=== PATIENT | female | born 1970 | race Caucasian/White ===

== ENCOUNTER 2023-01-11 15:13 | Emergency (ER) | payer OTHER, SELFPAY ==
--- NOTE | 2023-01-11 15:15 | RT.EKG_ITS ---
APPROVED REPORT Exam: Resting ECG Reason for Exam: chest pain, h/o PE Patient Location: E HR:84 bpm ECG Measurements Heart Rate 84 AXIS VA 175 P 72 QRSd 84 QRS 62 QT 354 T 48 QTc 420 Conclusion Sinus rhythm...normal P axis, V-rate 60- 99
[2023-01-11 15:27] VITALS: BP 125/74; PULSE 83; RESP 13; TEMP 37.2; O2SAT 96
--- NOTE | 2023-01-11 15:45 | DI.RAD_ITS ---
Exam(s) XR CHEST 2V PA LATERAL EXAM: XR CHEST 2V PA LATERAL CLINICAL HISTORY: cough TECHNIQUE: 2D digital imaging was performed of the chest. Two images were obtained. PA and lateral views were obtained. COMPARISON: No exams were available for comparison FINDINGS: MEDIASTINUM: Normal. HEART: Normal. PULMONARY VASCULATURE: Normal. LUNGS: The lungs are clear. There is hyperinflation of the chest which may represent underlying COPD . No focal consolidating infiltrates are seen. PLEURAL SPACE: No pleural effusion or pneumothorax. BONE:Within normal limits for the patient's age. OTHER FINDINGS:Normal. IMPRESSION: No acute pulmonary findings. No focal consolidating infiltrates. DATA REPOSITORY: RADIATION DOSE DELIVERED:
--- NOTE | 2023-01-11 15:48 | ED.GENADUL_ITS ---
Discharge Plan Disposition Patient Disposition: Home Discharge Details Clinical Impression: Hemoptysis, Upper respiratory infection ED Provider: Jackie Foster Home Meds and New Rx's Prescriptions: New benzonatate 100 mg capsule 100 mg PO TID PRN (Reason: cough) Qty: 10 0RF Continued Xarelto 15 mg tablet 15 mg PO DAILY Rx Instructions: must administer with evening meal Discharge Instructions Instructions: Upper Respiratory Infection (ED), Hemoptysis (ED) Additional Instructions: Your labs and imaging are reassuring here today. As we discussed, I am concerned that this associate with your forceful coughing from your recent cold. Please encourage hydration. Please continue with your medications as previously prescribed. Please try humidifier next to your bed. I have prescribed you a cough suppressant you may use this as prescribed. You may also try cough drops to help with symptoms. I have referred you to local primary care. You should hear from care management regarding follow-up appointment. Below is the number for [employer] [facility] for your chronic gynecologic care, you may call to schedule follow-up appointment. 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 She reports that she had a cold for the past week. Initially it was laying low, felt like she was hit hard by this illness. However, over the recent days she feels that she has been improving. Feels that her cough is breaking up. Has been bringing up more phlegm. However, this morning began noting first a small clot and then some blood-tinged sputum. This has been resolved for over an hour at this point. Patient is anticoagulated on rivaroxaban, endorses 1 missed dose this week associated with illness and being fatigued. She states that her primary care and paper tube grader are located in [place]. She states that her paper tube grader has been advising her that she has been stable for so many years is unlikely she will have a recurrent issue. She denies any recent travel. No leg pain or swelling. States that she did initially have a sore throat but this has not subsided. On exam, patient appears nontoxic. Her lung sounds are clear. She is hemodynamically stable. Normal cardiac exam. No lower extremity edema or calf pain. Normal HEENT exam with no blood in the posterior oropharynx. No recent epistaxis. ECG was obtained and reviewed by Dr. Leone. No acute abnormalities appreciated. Patient does endorse some central chest discomfort particular with cough. Primary concern at this time for hemoptysis associated with her forceful cough that she has had for the past week. Again, this does not sound to be in any significant quantity or persisting for any long periods of time. However, given her past medical history I did also consider potential PE and we will screen with a D-dimer. We will also obtain a chest x-ray. She does not endorsing any shortness of breath but has been having some chest discomfort. This does not sound to be exertionally based, more likely associated with recent viral illness. However, also considered less likely to be ACS and will screen with a troponin. She denies any bleeding elsewhere, no rash. FINDINGS: Lungs: Hyperinflation consistent with underlying COPD/emphysema, reactive airway disease, or upper respiratory infection with air trapping. No peripheral infiltrates. No edema. Pleural spaces: No pleural effusion. Heart/Mediastinum: Normal heart size. Bones/joints: Unremarkable skeletal structures. IMPRESSION: Nonspecific hyperinflation suggesting air trapping. Consider COPD/emphysema, reactive airway disease, or upper respiratory infection. This URI ddx is consistent with history. She does not have hx of COPD, does not have evidence of reactive airway at this time. Labs reviewed. No leukocytosis, no elevation of d-dimer or tropoinin. No other signifcant lab abnormalities. Discussed with patient. We will arrange for local PCP, She would like to continu with her current paper tube grader. Encourage supportive care. Encouraged that she continue with her rivaroxaban. Advised close f/u and strict return precautions. All of her questions and concern were addressed, she is in agreene twiht this plan. HPI General Date/Time Provider Initiated Documentation: 01/11/23 15:29 . Limitations to Documentation: no limitations . Information obtained by: patient and RN notes reviewed . History of Present Illness 52 year old F presents to the emergency department with the chief complaint of Hemoptysis, chest discomfort, cold, described as moderate, with intensity rated at 5. Quality is described as aching, and is localized to the chest. Patient reports no radiation. Patient started experiencing this hour(s) (Noted the hemoptysis this morning. Cold began a week ago but has been improving) and it has been constant. No relieving factors improve symptom(s), Other factors that worsen symptoms (Coughing) . Patient notes chest pain, cough, loss of appetite and malaise; denies fever/chills, headaches, nausea/vomiting, rash and shortness of breath. Patient did receive the following treatments prior to arrival, none Related Data Home Medications Medication Instructions Recorded Confirmed benzonatate 100 mg capsule 100 mg PO TID PRN cough #10 caps 01/11/23 rivaroxaban 15 mg tablet (Xarelto) 15 mg PO DAILY 01/11/23 01/11/23 Previous Rx's Medication Instructions Recorded benzonatate 100 mg capsule 100 mg PO TID PRN cough #10 caps 01/11/23 Allergies Allergy/AdvReac Type Severity Reaction Status Date / Time No Known Allergies Allergy Verified 01/11/23 10:29 General Stated Complaint: RespSymp ALFREDA: 3 Review of Systems Constitutional Constitutional: Reports as per HPI, Denies chills, Denies fever(s) and Denies headache(s) ENT Ears, Nose, Mouth, and Throat: Denies headache(s) Cardiovascular Cardiovascular: Reports as per HPI and Denies dyspnea Respiratory Respiratory: Reports as per HPI, Denies pain on inspiration, Denies pain with cough and Denies dyspnea Gastrointestinal Gastrointestinal: Reports as per HPI, Denies abdominal pain, Denies diarrhea, Denies nausea and Denies vomiting Musculoskeletal Musculoskeletal: Reports as per HPI and Denies back pain Integumentary/Breasts Skin/Breast: Reports as per HPI and Denies rash Neurologic Neurologic: Reports as per HPI and Denies headache(s) Hematologic/Lymphatic Hematologic/Lymphatic: Reports as per HPI, Denies easy bleeding and Denies easy bruising PFSH All Active Problems (Updated 01/11/23 @ 17:33 by SONA Fitzpatrick) Hemoptysis (Acute) Upper respiratory infection (Acute) Social History Smoking/Tobacco Use Status: Never Smoking risk assessment performed?: Yes Do you feel safe at home: Yes Exam Const General: cooperative, healthy appearing, comfortable, no acute distress and well developed Nutritional Appearance: average body habitus and well nourished Orientation: alert, awake and oriented x3 [facility]: normal to inspection Ears: hearing grossly normal bilaterally, external ears normal, TM's normal bilaterally and mastoids normal Face and sinus: normal facial exam, sinuses nontender and face symmetric Mouth: oral mucosae normal, oropharynx normal and moist mucous membranes Throat: posterior oropharynx normal, tonsils normal and uvula midline Neck Neck: normal visual inspection and no lymphadenopathy Chest Chest: normal inspection of the chest, normal palpation of entire chest wall and no crepitus Resp Effort & Inspection: normal respiratory effort, able to speak in complete sentences and no respiratory distress Auscultation: clear to auscultation bilaterally, no rales, no rhonchi and no wheezes Cardio Rate: regular rate Rhythm: regular rhythm Heart Sounds: S1 normal and S2 normal Skin General skin exam: no rashes or lesions noted Trauma: no lacerations or abrasions Neuro General: patient alert, patient awake and patient oriented x3 Cognition: normal cognition Speech: speech normal Gait: normal gait Extrem General: normal to inspection, capillary refill normal, no pedal edema, no calf tenderness and normal gait Psych Appearance: grossly normal and well kempt Mental Status: mental status grossly normal Speech and Movement: speech and movement normal Course Vital Signs Vital signs: Vital Signs Temperature 37.2 C 01/11/23 15:27 Pulse 83 01/11/23 15:27 Respiratory Rate 13 01/11/23 15:27 Blood Pressure 125/74 01/11/23 15:27 Pulse Oximetry 96 01/11/23 15:27 Temperature 37.2 C 01/11/23 15:27 Temperature Source Oral 01/11/23 15:27 Pulse 83 01/11/23 15:27 Respiratory Rate 13 01/11/23 15:27 Respiratory Effort Normal 01/11/23 15:35 Blood Pressure 125/74 01/11/23 15:27 Blood Pressure Position Sitting 01/11/23 15:27 Pulse Oximetry 96 01/11/23 15:27 Oxygen Delivery Method Room Air 01/11/23 15:27 Oxygen Flow Rate 0 01/11/23 15:27 Pain Level 5 03/18/23 15:27 PAWSS Have you Been Recently Intoxicated or Drunk Within the Last 30 days?: No Have you Ever Experienced Previous Episodes of Alcohol Withdrawal?: No Have you ever Experienced Withdrawal Seizures?: No Have you ever Experienced Delirium Tremens(DT)s?: No Have you ever undergone Alcohol Rehabilitation Treatment (i.e, inpt ot outpatient treatment programs)?: No Have you ever Experienced Blackouts?: No Have you ever Combined Alcohol with other Downers within the last 90 days?: No Have you ever Combined Alcohol with any other Substance of Abuse during the last 90 days?: No Positive Blood Alcohol level on Presentation? [PCS.BAL]: No Evidence of Increased Autonomic Activity (i.e. HR>120, tremor, sweating, agitation, nausea)?: No Result: 0
[2023-01-11] MEDS: Normal Saline 1,000 ML 1000 ML IV (16:11)
[2023-01-11 16:27] LABS: Abs Immature Grans 0.01 10^3/uL (0.0-0.06); Absolute Basophil Count 0.05 10^3/uL (0.0-0.2); Absolute Eosinophil Count 0.24 10^3/uL (0.0-0.7); Absolute Lymphocyte Count 2.46 10^3/uL (1.2-3.4); Absolute Monocyte Count 0.67 10^3/uL (0.1-0.8); Absolute Neutrophil Count 3.72 10^3/uL (1.2-6.7); Basophils % 0.7; Eosinophils % 3.4; HCT 40.3 % (36.0-46.0); HGB 13.1 g/dL (11.2-15.7); Immature Grans % 0.1; Lymphocytes % 34.4; MCH 29.7 pg (27.0-33.0); MCHC 32.5 % (32.0-36.0); MCV 91 fL (80-95); MPV 11.8 fL (8.0-11.0); Monocytes % 9.4; Platelet Count 223 10^3/uL (130-400); RBC 4.41 10^6/uL (3.93-5.22); RDW 11.9 % (11.7-14.6); RDW-SD 40.4 fL; WBC 7.15 10^3/uL (4.4-10.8)
[2023-01-11 16:34] VITALS: BP 121/72; PULSE 79; PULSE 80; RESP 17; O2SAT 96
[2023-01-11 16:41] LABS: INR 0.9 (0.9-1.1); PTT Activated 26.7 sec (21.5-31.9); Prothrombin Time 9.6 sec (9.3-11.0)
[2023-01-11 16:47] LABS: ALT 19 U/L (14-59); AST 12 U/L (15-37); Albumin 4.1 g/dL (3.4-5.0); Alkaline Phosphatase 122 U/L (46-116); Anion Gap 7.8 mmol/L (3-11); BUN 15 mg/dL (7-18); Bilirubin, Total 0.3 mg/dL (0.2-1.0); CO2 28.2 mmol/L (21.0-32.0); Calcium 8.8 mg/dL (8.5-10.1); Chloride 106 mmol/L (98-107); Estimated GFR 67.78 (mL/min/1.73m2); Glucose 133 mg/dL (74-106); Magnesium 2.2 mg/dL (1.8-2.4); Potassium 3.8 mmol/L (3.5-5.1); Sodium 142 mmol/L (136-145); Total Protein 7.3 g/dL (6.4-8.2); Troponin I < 50 ng/L (<or=60)
[2023-01-11 17:00] VITALS: BP 122/70; PULSE 74; O2SAT 96
[2023-01-11 17:06] LABS: D-Dimer 216 ng/mlFEU (<500)
[2023-01-11 17:15] VITALS: BP 113/82; PULSE 71; O2SAT 96
--- NOTE | 2023-01-11 17:18 | DI.VRAD_ITS ---
PROCEDURE INFORMATION: Exam: XR Chest Exam date and time: 01/11/2023 4:41 PM Age: 52 years old Clinical indication: Cough TECHNIQUE: Imaging protocol: Radiologic exam of the chest. Views: 2 views. COMPARISON: No relevant prior studies available. FINDINGS: Lungs: Hyperinflation consistent with underlying COPD/emphysema, reactive airway disease, or upper respiratory infection with air trapping. No peripheral infiltrates. No edema. Pleural spaces: No pleural effusion. Heart/Mediastinum: Normal heart size. Bones/joints: Unremarkable skeletal structures. IMPRESSION: Nonspecific hyperinflation suggesting air trapping. Consider COPD/emphysema, reactive airway disease, or upper respiratory infection. Dictated and Authenticated by: Viktor Mena MD. Ordering:JOSE Mejia MD
[2023-01-11 17:30] VITALS: BP 136/79; PULSE 77; O2SAT 99
--- NOTE | 2023-01-11 17:35 | NUR.NOTE ---
Nursing Note: Referral given to Care Management for needs PCP/hemoptysis, establish care/ in 2 weeks.
== END 2023-01-11 17:46 | disposition home or self-care (01) ==
PROVIDERS: Emergency Provider Physician Assistant
DX: J06.9 Acute upper respiratory infection, unspecified (principal); R53.83 Other fatigue; R07.89 Other chest pain; I25.2 Old myocardial infarction; Z86.718 Personal history of other venous thrombosis and embolism; Z86.711 Personal history of pulmonary embolism; Z79.01 Long term (current) use of anticoagulants
CPT/HCPCS: 80053; 81025; 93005; 96360; 99284; 71046; 83735; 84484; 85025; 85379; 85610; 85730; 93010; 99285

== ENCOUNTER 2023-06-24 16:40 | Emergency (ER) | payer OTHER, SELFPAY ==
[2023-06-24 16:53] VITALS: BP 125/98; PULSE 66; RESP 99; TEMP 36.7; O2SAT 99
--- NOTE | 2023-06-24 17:00 | DI.CT_ITS ---
Exam(s) CT LUMBAR SPINE WO EXAM: CT LUMBAR SPINE WO CLINICAL HISTORY: pain s/p fall on rock. TECHNIQUE: Imaging Protocol: Axial computed tomography images with coronal and sagittal reformatted images were created and reviewed COMPARISON: No exams were available for comparison FINDINGS: Bones: The last intervertebral disc space is designated the L5/S1 level for the numbering purpose of this examination. The vertebral body heights are well maintained. Alignment is satisfactory. No fracture is seen. The intervertebral discs are normal in height. No gross evidence of a disc herniation. The visualized SI joints and sacrum are will maintained. Soft Tissues: The paraspinal soft tissues are unremarkable. No abnormalities are seen visualized por tions of the abdomen or pelvis.. IMPRESSION: Normal CT examination of the lumbar spine. RADIATION DOSE DELIVERED: 553.15 mGy.cm Total DLP DATA REPOSITORY: All CT scans at this facility are submitted to the National Radiology Data Registry (NRDR) Dose Index Registry (DIR) with the [employer] (A[employer]). RADIATION OPTIMIZATION: All CT scans at this facility use at least one of these dose optimization te chniques: automated exposure control; mA and/or kV adjustment per patient size (includes targeted exa ms where dose is matched to clinical indication); or iterative reconstruction.
--- NOTE | 2023-06-24 17:12 | ED.GENADUL_ITS ---
Discharge Plan Disposition Patient Disposition: Home Condition: Stable Discharge Details Clinical Impression: Lumbar contusion Primary Care Provider: None,None ED Provider: Waqar Leone Home Meds and New Rx's Prescriptions: Continued Xarelto 15 mg tablet 15 mg PO DAILY Rx Instructions: must administer with evening meal benzonatate 100 mg capsule 100 mg PO TID PRN (Reason: cough) Qty: 10 0RF Discharge Instructions Instructions: Contusion in Adults (ED) Additional Instructions: if pain continues next week follow up with your primary care provider if you feel more ill, have severe worsening pain or new symptoms such as chest pain return to the emergency department Medical Decision Making 53 yo female with hx of prior PE on rivaroxaban who comes in with lower back and coccyx pain since Friday. She was hiking [place] and slipped and landed on a rock on her lower back. Denies hitting her head or loc, has had coccyx and mid lower back pain since so came here. Denies issues with urinary retention, paresthesia, weakness since. She is caox4 on arrival, no signs of trauma to the head, no c/t spine tenderness, no chest or abdomen tenderness. Has tenderness over l5 and the coccyx with no palpable deformity, no saddle anethesia. suspect contusion but will obtain ct l spine and coccyx/sacrum to further evaluate. imaging negative, pt stable, no new pain. Will have nursing place lidocaine patch and she states pain has kept her from sleeping will send home with 4 oxycodone. Stable for d/c, return precautions given Differential Diagnosis Differential Diagnosis: contusion, fracture Medical Records Medical records reviewed: Yes I reviewed the patient's medical records. Imaging Data Radiologic Study: Attestation: I personally reviewed and interpreted this imaging study as follows: Imaging: CT Scan Radiologist's impression: no acute findings HPI General Mode of arrival: ambulatory . Date/Time Provider Initiated Documentation: 06/24/23 16:50 . Limitations to Documentation: no limitations . Information obtained by: patient . History of Present Illness 53 year old F presents to the emergency department with the chief complaint of lumbar and coccyx pain, described as moderate, Quality is described as aching, Patient started experiencing this day(s) (2) and it has been constant. No relieving factors improve symptom(s), No exacerbating factors reported . Patient notes no other symptoms.. Patient did receive the following treatments prior to arrival, none Related Data Home Medications Medication Instructions Recorded Confirmed benzonatate 100 mg capsule 100 mg PO TID PRN cough #10 caps 01/11/23 06/24/23 rivaroxaban 15 mg tablet (Xarelto) 15 mg PO DAILY 01/11/23 06/24/23 Previous Rx's Medication Instructions Recorded benzonatate 100 mg capsule 100 mg PO TID PRN cough #10 caps 01/11/23 Allergies Allergy/AdvReac Type Severity Reaction Status Date / Time No Known Allergies Allergy Verified 06/24/23 16:56 General Stated Complaint: Nk/Back Pain ALFREDA: 4 Review of Systems All systems reviewed & are unremarkable except as noted in HPI and below Constitutional Constitutional: Denies chills, Denies fever(s) and Denies weakness Cardiovascular Cardiovascular: Denies chest pain and Denies dyspnea Respiratory Respiratory: Denies cough and Denies dyspnea Gastrointestinal Gastrointestinal: Denies abdominal pain, Denies nausea and Denies vomiting Musculoskeletal Musculoskeletal: Denies joint swelling Neurologic Neurologic: Denies weakness PFSH All Active Problems (Updated 06/24/23 @ 18:58 by Waqar Leone MD) Lumbar contusion (Acute) Social History Smoking/Tobacco Use Status: Never Smoking risk assessment performed?: Yes Do you feel safe at home: Yes Exam Const General: no acute distress Orientation: alert HENMT Head: normal to inspection Ears: external ears normal General nose exam: external nose normal Mouth: moist mucous membranes Eyes General: appearance normal, both eyes and all related structures Neck Neck: normal visual inspection Resp Effort & Inspection: normal respiratory effort and able to speak in complete sentences Cardio Rate: regular rate GI Palpation: soft and nontender Back/Spine/Pelvis Back: no CVA tenderness Skin General skin exam: no rashes or lesions noted Neuro General: patient alert and patient oriented x3 Extrem General: normal to inspection Psych Mental Status: mental status grossly normal Course Vital Signs Vital signs: Vital Signs Temperature 36.7 C 06/24/23 16:53 Pulse 66 06/24/23 16:53 Respiratory Rate 99 H 06/24/23 16:53 Blood Pressure 125/98 H 06/24/23 16:53 Pulse Oximetry 99 06/24/23 16:53 Temperature 36.7 C 06/24/23 16:53 Pulse 66 06/24/23 16:53 Respiratory Rate 99 H 06/24/23 16:53 Respiratory Effort Normal 06/24/23 17:00 Blood Pressure 125/98 H 06/24/23 16:53 Blood Pressure Position Sitting 06/24/23 16:53 Pulse Oximetry 99 06/24/23 16:53 Oxygen Delivery Method Room Air 06/24/23 16:53 Oxygen Flow Rate 0 06/24/23 16:53 Pain Level 3 06/24/23 16:53
[2023-06-24] MEDS: Lidocaine 5% Patch 1 PATCH TP (19:13)
== END 2023-06-24 19:21 | disposition home or self-care (01) ==
PROVIDERS: Emergency Provider Emergency Medicine
DX: S30.0XXA Contusion of lower back and pelvis, initial encounter (principal); W01.198A Fall on same level from slipping, tripping and stumbling with subsequent striking against other object, initial encounter
CPT/HCPCS: 99284; 72131

== ENCOUNTER 2023-10-03 11:13 | Outpatient (REF) | payer OTHER, SELFPAY ==
--- NOTE | 2023-10-03 09:00 | PAPFT_PTH ---
PATIENT: Elsa West LOC: [facility] U#:[id number] AGE/SX: 53/F ROOM: RE10/03/[address]: Mala العلي DO : 1970 BED: DIS: 10/03/2023 SPEC #: [id number] RECD: 10/03/23 12:59 STATUS: KORINARoseanna REQ #: [id number] HANDY: 10/03/23 09:[address]: Mala العلي DEPT: [facility] Cytology RECD BY: Sharon Diop ENTERED: 10/03/23 12:59 SP TYPE: PAPFT OTHR DR: Nesha Bishop Tissues: 1 - CX/ENDOCX FOR PAP SMEARS Procedures: PAP THIN PREP/UVM Screening HPV DNA PROBE Comments: [id number]
== END 2023-10-03 11:14 | disposition home or self-care (01) ==
LOC: LBN 11:13
PROVIDERS: PCP Family Medicine; Visit Provider Obstetrics & Gynecology
DX: Z12.4 Encounter for screening for malignant neoplasm of cervix (principal)
CPT/HCPCS: 88142; 87624

== ENCOUNTER 2023-10-03 14:36 | Outpatient (CLI) | payer OTHER, SELFPAY ==
[2023-10-03 10:56] LABS: Vitamin D 25 Total 32.3 ng/mL (30-100)
[2023-10-03 11:07] LABS: Vitamin B12 > 2000 pg/mL (193-986)
--- OUTSIDE RECORDS SUMMARY | 2023-10-03 14:38 | XMS_ITS | CCD ---
Author Name Unknown Address [address] [place] [id number] Organization Unknown Address [address] [place] [address] [id number] Care Team Providers Care Executive Chef Name Role Phone EFREN WOODARD Attending Physician [phone] Vital Signs Unknown or Not Available. Allergies Unknown or Not Available. Procedures Unknown or Not Available. History of Immunizations Unknown or Not Available. Problems Unknown or Not Available. Results Unknown or Not Available. Active Medications Unknown or Not Available. Medications Administered During Visit Unknown or Not Available. Encounters Encounter Diagnosis Diagnosis Code Start Date Hallux rigidus, right foot M2021 07/09 Social History Smoking Status Code Start Date End Date Never smoker [id number] Patient Decision Aids Unknown or Not Available. Discharge Instructions You were admitted to [facility] on 07/09/2021 13:02 with a principal diagnosis of Hallux rigidus, right foot You were discharged from [facility] on 07/09/2021 13:03 Should you have any questions prior to discharge, please contact a member of your healthcare team. If you have left the hospital and have any questions, please contact your primary care physician. Chief Complaint and Reason For Visit Unknown or Not Available. Function Status Unknown or Not Available. Plan of Care Unknown or Not Available. Referral/Transition of Care Unknown or Not Available.
== END 2023-10-03 14:37 | disposition home or self-care (01) ==
LOC: LBO 14:37
PROVIDERS: PCP Family Medicine; Visit Provider Family Medicine
DX: F32.A Depression, unspecified (principal); D51.0 Vitamin B12 deficiency anemia due to intrinsic factor deficiency
CPT/HCPCS: 36415; 82306; 82607

== ENCOUNTER → 2023-10-24 15:17 | Outpatient (CLI) | payer OTHER, SELFPAY ==
--- NOTE | 2023-10-24 15:34 | DI.RAD_ITS ---
Exam(s) XR HAND LT COMPLETE EXAM: XR HAND LT COMPLETEz CLINICAL HISTORY: Lt hand pain, M79.642. TECHNIQUE: 2D digital imaging was performed. Three views. COMPARISON: CR XR HAND RT COMPLETE from 10/24/2023 FINDINGS: BONES: Bones are normally mineralized. No acute fracture is present. No bony destructive lesion is s een. JOINTS: No dislocation present. No significant joint space narrowing. SOFT TISSUE: Normal. IMPRESSION: Unremarkable radiographs of the left hand. DATA REPOSITORY: RADIATION DOSE DELIVERED:
--- NOTE | 2023-10-24 15:34 | DI.RAD_ITS ---
Exam(s) XR HAND RT COMPLETE EXAM: XR HAND RT COMPLETE CLINICAL HISTORY: Rt hand pain, M79.641. TECHNIQUE: 2D digital imaging was performed. Three views. COMPARISON: No exams were available for comparison FINDINGS: BONES: Bones are normally mineralized. No acute fracture is present. No bony destructive lesion is s een. JOINTS: No dislocation present. Minimal degenerative changes present at the interphalangeal joint o f the thumb. Minimal joint space narrowing of the interphalangeal joints of the fingers. No signifi cant periarticular spurring SOFT TISSUE: Normal. IMPRESSION: Minimal degenerative changes. DATA REPOSITORY: RADIATION DOSE DELIVERED:
== END ==
PROVIDERS: PCP Family Medicine; Visit Provider Family Medicine
DX: M79.641 Pain in right hand (principal); M79.642 Pain in left hand
CPT/HCPCS: 73130

== ENCOUNTER 2024-01-28 05:03 | Outpatient (CLI) | payer OTHER, SELFPAY ==
[2024-01-28 09:07] LABS: ESR < 1 mm/hr (0-30)
[2024-01-28 10:22] LABS: ALT 23 U/L (14-59); AST 13 U/L (15-37); Albumin 4.3 g/dL (3.4-5.0); Alkaline Phosphatase 91 U/L (46-116); Anion Gap 10.1 mmol/L (3-11); BUN 15 mg/dL (7-18); Bilirubin, Total 0.5 mg/dL (0.2-1.0); CO2 29.9 mmol/L (21.0-32.0); CREATININE 0.9 mg/dL (0.55-1.02); Calcium 9.6 mg/dL (8.5-10.1); Calculated LDL 121 mg/dL (<100); Chloride 104 mmol/L (98-107); Cholesterol 202 mg/dL (<200); Estimated GFR 76.44 (mL/min/1.73m2); Glucose 98 mg/dL (74-106); HDL Cholesterol 75 mg/dL (40-60); Potassium 4.6 mmol/L (3.5-5.1); Sodium 144 mmol/L (136-145); Total Protein 7.4 g/dL (6.4-8.2); Triglyceride 34 mg/dL (<150); Vitamin B12 425 pg/mL (193-986)
[2024-01-28 10:46] LABS: Uric Acid 4.3 mg/dL (2.6-6.0)
[2024-01-28 17:23] LABS: Rheumatoid Factor <8.6 IU/mL (<12.0)
[2024-01-29 14:19] LABS: ANA Interpretation Negative (Negative)
[2024-01-30 09:33] LABS: Insulin 4.3 uIU/mL (<29.0)
== END 2024-01-28 05:04 | disposition home or self-care (01) ==
LOC: LBO 05:03
PROVIDERS: PCP Family Medicine; Visit Provider Family Medicine
DX: D51.0 Vitamin B12 deficiency anemia due to intrinsic factor deficiency (principal); Z13.6 Encounter for screening for cardiovascular disorders; Z00.00 Encounter for general adult medical examination without abnormal findings
CPT/HCPCS: 36415; 80053; 80061; 85652; 82607; 83525; 84550; 86038; 86431

== ENCOUNTER 2024-04-02 09:09 | Day surgery (SDC) | payer OTHER, SELFPAY ==
--- NOTE | 2024-04-01 23:04 | ENDO_ITS ---
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 Monitors were applied and a time out was done. The patients name, date of , procedure type, allergies to medications and metal in their body was reviewed. A bite block was placed and the patient was sedated. Once sedated and comfortable the gastroscope was advanced through the oropharynx which was grossly normal into the esophagus. The proximal and mid- esophagus were normal. In the distal esophagus there was no: Varices/diverticula/stricture. Upon entering the stomach, bile is noted. The scope was advanced into the stomach and through the pylorus into the 3rd portion of the duodenum. The duodenum was noted to be normal. Biopsies were done, all specimens are retrieved and no bleeding is noted. The scope was retracted back into the stomach and biopsies were done to rule out H. pylori. There were no ulcers. There is mild gastritis radiating out from the antrum in a straight fashion. The scope was retroflexed. The cardia and fundus were noted to be nor mal. There is no hiatal hernia noted. The scope was retracted back into the esophagus and biopsies were done of the GE junction to rule out Juan's. There is a very small line of what appears to be Juan's. Biopsies are obtained. The Z line was irregular. The GE junction was at 37cm. The scope was removed and the patient was woken up and taken back to [facility] in stable condition.
[2024-04-02 09:20] VITALS: BP 123/85; PULSE 76; RESP 20; TEMP 36.5; O2SAT 98
[2024-04-02] MEDS: Lactated Ringers 1,000 ML 80 ML IV (09:36)
--- NOTE | 2024-04-02 10:06 | W.ANESPRE ---
General Info Date of Service Date Performed: 04/02/24 Height: 5 ft 6 in Weight: 63.2 kg Body Mass Index (BMI): 22.4 Surgical Procedure: Operation Date: 04/02/24 09:35 Proposed Procedure Side Surgeon p Gastroscopy Isi Mitchell, Meds Allergies and Home Medications Allergies Allergy/AdvReac Type Severity Reaction Status Date / Time No Known Allergies Allergy Verified 04/02/24 09:22 Home Medication Medication Instructions Recorded rivaroxaban 15 mg tablet (Xarelto) 15 mg PO DAILY 01/11/23 cyanocobalamin (vitamin B-12) 1,000 mcg subcut QMONTH #10 mL 12/01/23 1,000 mcg/mL injection solution needle (disp) 25 gauge 25 gauge x #100 ea 12/03/23 1 (BD PrecisionGlide) syringe with needle 3 mL 18 x 1 #100 ea 12/03/23 1/2 (BD Luer-Niyah Syringe) citalopram 20 mg tablet 20 mg PO DAILY #30 tabs 12/23/23 enoxaparin 60 mg/0.6 mL 60 mg (0.6 mL) subcut Q12H 03/15/24 subcutaneous syringe (Lovenox) bridging for procedure/hx of DVT #8 mL omeprazole 20 mg capsule,delayed 20 mg PO BID #60 caps 03/15/24 release bupropion HCl 150 mg 24 hr tablet, 150 mg PO QAM #30 tabs 04/01/24 extended release (Wellbutrin XL) Current Visit Medications: Current Medications Generic Name Dose Route Start Last Admin Trade Name Freq PRN Reason Stop Dose Admin Ringer's Solution 1,000 mls @ 80 mls/hr 04/02/24 06:00 04/02/24 09:36 IV 04/02/24 23:59 80 mls/hr INFUSION MARY Administration IV Miscellaneous Supplies 1 each 04/02/24 06:00 Iv Access IV 04/02/24 23:59 DIRECTED MARY Ondansetron HCl 4 mg 04/02/24 16:22 Ondansetron 4 Mg/2 Ml Vial IVP 05/02/24 16:21 Q4H PRN PRN Nausea / Vomiting Sodium Chloride 0 ml 04/02/24 06:00 Normal Saline Flush 10 Ml Syr IV 04/02/24 23:59 PRN PRN Sodium Chloride 0 ml 04/02/24 06:00 Normal Saline 10 Ml Vial IJ 04/02/24 23:59 DIRECTED PRN Sterile Water 0 ml 04/02/24 06:00 Water,Injection,Sterile 10 Ml Vial IJ 04/02/24 23:59 DIRECTED PRN PFSH Active Problems Active Problems: Problem Status Onset Code Chronic GERD K21.9 Lateral epicondylitis of right elbow M77.11 CHATO (generalized anxiety disorder) F41.1 Urinary incontinence in female R32 Pernicious anemia D51.0 Chronic constipation K59.09 Breast density R92.30 Depression F32.A Heterozygous factor V Leiden mutation ~2013 D68.51 Medical History Medical History Family history of colon cancer Positive DONALD (antinuclear antibody) (2018) DS DNA Migraines hx cluster headaches Retinal tear Dysmenorrhea Ovarian cyst Pulmonary embolism (~2013) lifetime xarelto DVT (deep vein thrombosis) in (~1985) Surgical History Surgical History History of colonoscopy (~10/31/20) [place] normal History of esophagogastroduodenoscopy (EGD) (~10/31/20) [place] small hiatal hernia S/P section S/P endometrial ablation H/O shoulder surgery (~2016) S/P left knee arthroscopy (~1985) Hx of tonsillectomy (~1973) Tobacco Smoking/Tobacco Use Status: Never Passive smoking exposure: Yes Second hand exposure: Yes Alcohol Alcohol Intake: current Alcohol intake frequency: a few times a week Alcohol type: wine and hard liquor Substance Use Substance use: Never Substance use type: does not use Vital Signs and Lab Results Vital Signs Most Recent Vital Signs in EMR: Most Recent Vital Signs Temp Pulse Resp BP Pulse Ox 36.5 C 76 20 123/85 98 04/02/24 09:20 04/02/24 09:20 04/02/24 09:20 04/02/24 09:20 04/02/24 09:20 Lab Results Blood Type / Crossmatch: No Data to Display Complete Blood Count: No Data to Display Complete Metabolic Panel: No Data to Display Liver Function Panel: No Data to Display Coagulation Panel: No Data to Display Cardiac Panel: No Data to Display Arterial Blood Gas: No Data to Display Venous Blood Gas: No Data to Display Pancreas Panel: No Data to Display Thyroid Panel: No Data to Display Infectious Disease: No Data to Display Blood Cultures: No Data to Display Toxicology Panel: No Data to Display Panel: No Data to Display Imaging and Studies Imaging and Studies Study information below may be from another EMR and interpreted by another provider. Please see original notes in EMR for more complete details. EKG Summary: 01/11/2023: Exam: Resting ECG Reason for Exam: chest pain, h/o PE Patient Location: E HR:84 bpm ECG Measurements Heart Rate 84 AXIS AK 175 P 72 QRSd 84 QRS 62 QT 354 T48 QTc 420 Conclusion Sinus rhythm...normal P axis, V-rate 60- 99 I have reviewed and I agree with the emergency room physician's ECG interpretation. Anesthesia Assessment and Plan Anesthesia History Personal History: No History of Anesthesia Complications and Unknown Anesthesia History Family History: No Family History of Anesthesia Complications Exercise Tolerance Exercise Tolerance: Metabolic Equivalents>4 Pertinent Negatives Pertinent Negatives: No Symptoms of GERD and No Major Pulmonary Symptoms or Complaints Cardiac & Pulmonary Exam Cardiac Exam: Normal S1/S2 Heart Sounds Pulmonary Exam: Clear Bilateral Breath Sounds Implantable Cardiac Device Does patient have a Pacemaker or an ICD?: No Airway Exam Known Difficult Airway: No Mallampati Class: 2 Mouth Opening: Normal (> 3cm) Thyromental Distance: Greater than 3 cm Neck Range of Motion: Full ROM Neck Circumference: Normal Teeth Condition: Normal Dentition ASA Classification ASA Score: ASA 3 Emergency Case?: No NPO Status NPO Status: NPO Clears >2 hours, Solids >8 hours Status Status: Not Relevant due to Medical History Anesthesia Plan Resuscitation Status: Full Code Anesthesia Technique: General Anesthesia Airway Planned: Natural Airway Monitors Used: Standard Monitors
[2024-04-02 10:07] VITALS: BMI 22.4
--- NOTE | 2024-04-02 10:22 | STOM_PTH ---
PATIENT: Elsa West LOC: [facility] U#:[id number] AGE/SX: 54/F ROOM: RE04/02/[address]: Isi Mitchell : 1970 BED: DIS: 04/02/2024 SPEC #: [id number] RECD: 04/02/24 16:52 STATUS: [facility] #: [id number] HANDY: 04/02/24 10:[address]: Isi Mitchell DEPT: Surgical Specimen RECD BY: Sharon Diop ENTERED: 04/02/24 16:53 SP TYPE: STOMACH OTHR DR: Nesha Bishop Tissues: 1 - BIOPSY BOWEL 2 - STOMACH BIOPSY 3 - STOMACH BIOPSY 4 - ESOPHAGUS BIOPSY 5 - ESOPHAGUS BIOPSY Procedures: GROSS AND MICRO LEVEL 4 Comments: [id number]
[2024-04-02 10:45] VITALS: BP 112/80; PULSE 84; RESP 16; TEMP 36.3; O2SAT 97
[2024-04-02 11:21] VITALS: BP 126/82; PULSE 74; RESP 16; TEMP 36.4; O2SAT 100
--- NOTE | 2024-04-02 12:12 | PDOC.DSDIS_ITS ---
Date of service: 04/02/24 Time of Service: 12:12 Discharge Plan Disposition Patient Disposition: Home Condition: Good Discharge Details Reason For Visit: stomach scope Attending Provider: Isi Mitchell Primary Care Provider: Nesha Bishop Home Meds and New Rx's Prescriptions: No Action Xarelto 15 mg tablet 15 mg PO DAILY Rx Instructions: must administer with evening meal enoxaparin [Lovenox] 60 mg/0.6 mL syringe 60 mg subcut Q12H Qty: 8 0RF omeprazole 20 mg capsule,delayed release(DR/EC) 20 mg PO BID Qty: 60 6RF Hold Instructions: felt it did not help cyanocobalamin (vitamin B-12) 1,000 mcg/mL solution 1,000 mcg subcut QMONTH Qty: 10 1RF (DME) BD Luer-Niyah Syringe 3 mL 18 x 1 1/2 syringe See Rx Instructions .Route Qty: 100 0RF Rx Instructions: As directed (DME) BD PrecisionGlide 25 gauge x 1 needle See Rx Instructions .Route Qty: 100 0RF Rx Instructions: As directed citalopram 20 mg tablet 20 mg PO DAILY Qty: 30 2RF bupropion HCl [Wellbutrin XL] 150 mg tablet extended release 24 hr 150 mg PO QAM Qty: 30 2RF Discharge Instructions Additional Instructions: Post EGD Instruction ?You had anesthesia for your EGD/stomach scope today.? For your safety, please do the following for the next twenty-four (24) hours: Do Not operate a motor vehicle (car, truck, motorcycle, etc.) Do Not drink alcoholic beverages or use any recreational drugs for the first 24 hours or while taking pain medications. The medications in your body may have a reaction that can be dangerous. Do Not make any important decisions or sign any important papers You have just had a gastroscopy (EGD) or upper GI tract examination. It is important for your smooth recovery that you carefully follow the recommendations below. Do not hesitate to call if any questions should arise about your anesthesia, condition, or care. -Symptoms you may experience during the next 24 hours: ?1. Mild abdominal pain or excessive gas or a bloated feeling which improves with rest, liquids, eating? slightly, and walking as tolerated. 2. Drowsiness and/or forgetfulness because of the medications you were given. ?3. Throat numbness for about 1 hour. 4. A sore throat which you can treat with throat lozenges or by gargling with salt water 4-5 times a day. 5. Redness at the site of your IV which you can treat with warm compresses. SPECIAL INSTRUCTIONS: 1. You may resume your previous diet in one hour. We recommend a light meal to start, then progress as tolerated. 2. Restart regular medications in one hour. 3. No aspirin or non-steroidal containing medication for three days. 4. No lifting over 20 pounds or strenuous activity for the first 24 hours after your procedure. After 24 hours there are no restrictions on your activity, but you may feel fatigued for a few days. Resume: -lovenox at 6pm today 04/02. continue for 48hrs -rivaroxaban am 04/03 Findings: bile reflux gastritis esophagitis -Medications: omeprazole daily -Continue to follow lifestyle modifications: No alcohol, tobacco products, Aspirin or NSAID's (ibuprofen, Motrin, Naprosyn, aleve, etc).? Try to limit/avoid:? soda pop/any carbonated beverages, caffeine (including tea & chocolate), and acidic foods, (tomatoes, citrus, onions, peppermints) spicy or fried/fatty foods. Do not lie down for 30 minutes after eating, and do not eat 2 hours prior to bedtime. Avoid wearing tight fitting clothing/ belts. Follow up: -My office will send a letter with the results of your biopsy?s in 2-3wks time. If you do not get good relief from omeprazole, please follow-up in the office. Call the office at [phone] (Office) or [phone] (Hospital), or go to the ER right away if you notice any of the followin. Vomiting blood and /or ?coffee ground? material. ?2. Worsening of abdominal pain or cramping. ?3. Trouble with breathing, cough, and/or fever (temperature above 101.5 F). 4. Increasing pain with swallowing. ?5. Chest pain. 6. Any new symptoms. 7. Worsening of the redness at the IV site Activity:: see above Diet:: see above DS: Diagnosis Discharge Diagnosis (1) Heterozygous factor V Leiden mutation: Status: Chronic (2) Chronic GERD: Status: Acute Asessment and Plan: Patient is seen and examined after they are endoscopy.? Patient has minimal sore throat.? They have been able to tolerate liquids.? They do not have any nausea vomiting.? They are not having any chest pain or shortness of breath.? They have been able to pass gas and are not having any abdominal pain or distention.? They have not vomited any blood.? The vital signs have been stable-see nursing notes. We discussed findings on their endoscopy. We reviewed the importance of lifestyle modification-see discharge instructions We reviewed any new medications that the patient may be prescribed-see discharge instructions Patient will either be sent a letter with the biopsy results or follow-up in the office-see discharge instructions. Patient was given explicit instructions to follow-up regarding post endoscopy-re ashish to discharge Patient verbalized understanding and discharged in stable and satisfactory condition.? See nursing notes. (3) Pernicious anemia: Status: Chronic (4) DVT (deep vein thrombosis) in : (5) Pulmonary embolism:
--- NOTE | 2024-04-02 13:11 | W.ANESPOSTOP ---
Postoperative Evaluation Date, Time and Location Date Performed: 04/02/24 Time Performed: 13:05 Patient Location: Day Surgery Unit Vital Signs Most Recent Imported Vital Signs: Most Recent Vital Signs Temp Pulse Resp BP Pulse Ox 36.4 C L 74 16 126/82 100 04/02/24 11:21 04/02/24 11:21 04/02/24 11:21 04/02/24 11:21 04/02/24 11:21 Pain Score Most Recent Pain Score: Most Recent Pain Score Pain Level 0 04/02/24 11:21 Assessment Mental Status: Awake (Alert & Oriented to Patient Baseline) Airway and Respiratory Function: Patent airway with normal (patient baseline) respiratory exam Cardiovascular Function: Hemodynamically Stable Hydration Status: Adequately Hydrated Nausea & Vomiting: No Nausea or Vomiting Pain: Pt. Denies Any Pain Peripheral Nerve Block: Patient did not receive a nerve block
== END 2024-04-02 12:39 | disposition home or self-care (01) ==
PROVIDERS: PCP Family Medicine; Visit Provider Surgery
PROC: 0DJ68ZZ Inspection of Stomach, Via Natural or Artificial Opening Endoscopic (ICD-10-PCS; CPT 43235; principal; 2024-04-02 09:30)
DX: K21.9 Gastro-esophageal reflux disease without esophagitis; D68.51 Activated protein C resistance; D51.0 Vitamin B12 deficiency anemia due to intrinsic factor deficiency; R76.8 Other specified abnormal immunological findings in serum; Z80.0 Family history of malignant neoplasm of digestive organs
CPT/HCPCS: 43239; 88305; J2001; J2704

== ENCOUNTER → 2024-06-03 12:48 | Outpatient (CLI) | payer OTHER, SELFPAY ==
--- NOTE | 2024-06-03 11:00 | DI.RAD_ITS ---
Exam(s) XR CERVICAL SPINE COMP 4-5V EXAM: XR CERVICAL SPINE COMP 4-5V CLINICAL HISTORY: Chronic neck pain,m54.2. TECHNIQUE: 2D digital imaging was performed. Five views were performed. COMPARISON: No exams were available for comparison FINDINGS: BONES: No fracture or destructive lesion. Vertebral bodies are unremarkable. There are facet degene rative changes greatest at C2-3 and C3-4 as well as C7-T1. No significant neural foraminal narrowing . DISKS: Intervertebral disc spaces are maintained. Prior small endplate osteophytes projecting mainl y anteriorly. ALIGNMENT: Cervical spinal alignment is within normal limits. The odontoid and atlantoaxial articulat ions are normal. SOFT TISSUE: Normal. The lung apices are clear. IMPRESSION: Mild degenerative disc changes. Degenerative changes of the facet joints, greatest at C7-T1. DATA REPOSITORY: RADIATION DOSE DELIVERED:
== END ==
PROVIDERS: PCP Family Medicine; Visit Provider Family Medicine
DX: M54.2 Cervicalgia (principal); G89.29 Other chronic pain; M50.33 Other cervical disc degeneration, cervicothoracic region
CPT/HCPCS: 72050

== ENCOUNTER 2024-10-07 03:21 | Outpatient (CLI) | payer OTHER, SELFPAY ==
[2024-10-07 09:17] LABS: Absolute Basophil Count 0.02 10^3/uL (0.0-0.2); Absolute Lymphocyte Count 1.56 10^3/uL (1.2-3.4); Absolute Monocyte Count 0.46 10^3/uL (0.1-0.8); Absolute Neutrophil Count 2.34 10^3/uL (1.2-6.7); Basophils % 0.4 %; Eosinophils % 4.4 %; HGB 12.1 g/dL (11.2-15.7); Lymphocytes % 34.1 %; MCH 30.2 pg (27.0-33.0); MCHC 31.8 % (32.0-36.0); MCV 95 fL (80-95); MPV 10.9 fL (8.0-11.0); Neutrophils % 51.1 %; Platelet Count 191 10^3/uL (130-400); RBC 4.01 10^6/uL (3.93-5.22); RDW 11.8 % (11.7-14.6); RDW-SD 41.5 fL; WBC 4.58 10^3/uL (4.4-10.8)
[2024-10-07 10:14] LABS: Anion Gap 7.9 mmol/L (3-11); BUN 11 mg/dL (7-18); CO2 31.1 mmol/L (21.0-32.0); CREATININE 0.9 mg/dL (0.55-1.02); Calcium 9.2 mg/dL (8.5-10.1); Chloride 104 mmol/L (98-107); Estimated GFR 75.97 (mL/min/1.73m2); Glucose 97 mg/dL (74-106); Sodium 143 mmol/L (136-145); TSH (W/Ref FT4) 1.66 uIU/mL (0.36-3.74)
[2024-10-07 10:16] LABS: Vitamin B12 > 2000 pg/mL (193-986)
[2024-10-07 18:17] LABS: T3, Total 130 ng/dL (97-169)
[2024-10-07 19:11] LABS: HIV-1/2 Ag & Ab Screen Negative (Negative)
[2024-10-07 19:30] LABS: Hepatitis C Ab w Rflx HCV PCR Negative (Negative)
== END 2024-10-07 03:22 | disposition home or self-care (01) ==
PROVIDERS: PCP Family Medicine; Visit Provider Family Medicine
DX: Z86.39 Personal history of other endocrine, nutritional and metabolic disease (principal); Z11.59 Encounter for screening for other viral diseases; Z11.4 Encounter for screening for human immunodeficiency virus [HIV]; D51.0 Vitamin B12 deficiency anemia due to intrinsic factor deficiency; E03.9 Hypothyroidism, unspecified; Z13.1 Encounter for screening for diabetes mellitus
CPT/HCPCS: 36415; 80048; 86803; 87389; 82607; 84443; 84480; 85025

== ENCOUNTER 2025-01-27 01:29 | Outpatient (CLI) | payer OTHER, SELFPAY ==
--- NOTE | 2025-01-27 | DI.MRI_ITS ---
Exam(s) MR UPPER JOINT LT WO EXAM: MR UPPER JOINT LT WO CLINICAL HISTORY: M77.02,M77.11,M77.12Medical epicondylitis LT elbow,LT lateral epicondylitis. TECHNIQUE: Multiplanar multisequence MRI was performed. COMPARISON: CR XR ELBOW 3 VIEW LEFT from 01/13/2025 FINDINGS: BONES: There is no fracture or contusion pattern. JOINTS: The articular cartilage is unremarkable. No joint effusion is present. TENDONS: Common flexors: Unremarkable. Common extensors: There is mild increased signal seen in the common extensor tendon suggestive of lat eral epicondylitis. Biceps: Unremarkable. Triceps: Unremarkable. MUSCLES: Unremarkable. MEDIAN NERVE: Unremarkable on this noncontrast examination. ULNAR NERVE: Unremarkable on this noncontrast examination. SOFT TISSUES: There is mild edema in the soft tissues posterior to the olecranon but no focal fluid c ollection is seen. LIGAMENTS: Ulnar collateral: Unremarkable. Radial collateral: Unremarkable. OTHER: IMPRESSION: Findings suggestive of lateral epicondylitis. DATA REPOSITORY:
== END 2025-01-27 01:49 ==
LOC: DI 01:29
PROVIDERS: PCP Family Medicine; Visit Provider Family Medicine
DX: M77.02 Medial epicondylitis, left elbow (principal)
CPT/HCPCS: 73221

== ENCOUNTER 2025-02-04 12:10 | Outpatient (REF) | payer OTHER, SELFPAY ==
--- NOTE | 2025-02-04 15:20 | SKI_PTH ---
PATIENT: Elsa West LOC: [facility] U#:[id number] AGE/SX: 55/F ROOM: RE02/04/[address]: Nesha Bishop : 1970 BED: DIS: 02/04/2025 SPEC #: [id number] RECD: 02/07/25 12:49 STATUS: [facility] REQ #: [id number] HANDY: 02/04/25 15:[address]: Nesha Bishop DEPT: Surgical Specimen RECD BY: Sharon Diop Tissues: 1 - SKIN BIOPSY(SHAVE/PUNCH) Procedures: SKIN LEVEL 4 Comments: [id number]
== END 2025-02-04 12:11 | disposition home or self-care (01) ==
LOC: LBN 12:10
PROVIDERS: PCP Family Medicine; Visit Provider Family Medicine
DX: L98.9 Disorder of the skin and subcutaneous tissue, unspecified (principal)
CPT/HCPCS: 88305

== ENCOUNTER 2025-02-07 01:09 | Outpatient (CLI) | payer OTHER, SELFPAY ==
--- NOTE | 2025-02-07 07:45 | DI.MRI_ITS ---
Exam(s) MR CERVICAL SPINE WO EXAM: MR CERVICAL SPINE WO CLINICAL HISTORY: chronic neck pain, abnl xray,CERVICAL SPONDYLOSIS,M47.812 TECHNIQUE: Multiplanar multisequence MRI of the cervical spine was performed without intravenous con trast. COMPARISON: CR XR CERVICAL SPINE COMP 4-5V from 06/03/2024 FINDINGS: BONES: Vertebral body heights are maintained. Alignment is normal. Bone marrow signal intensity is wi thin normal limits. CERVICAL CORD: Craniovertebral junction is unremarkable. The cervical cord is normal size and signal intensity. SOFT TISSUES: Unremarkable. C2-3: No disc herniation or bulge is identified. No evidence of neural foraminal narrowing. No signi ficant central canal stenosis. C3-4: Small endplate osteophytes and mild disc bulging. Mild bilateral neural foraminal narrowing. No disc herniation. No significant central canal stenosis. C4-5: Minimal disc bulging. No disc herniation is identified. No evidence of neural foraminal narrow ing. No significant central canal stenosis. C5-6: Minimal disc bulging. No disc herniation is identified. No evidence of neural foraminal narrow ing. No significant central canal stenosis. C6-7: Minimal disc bulging. No disc herniation is identified. No evidence of neural foraminal narrow ing. No significant central canal stenosis. C7-T1: No disc herniation or bulge is identified. Facet degenerative changes. Mild bilateral neural foraminal narrowing. No significant central canal stenosis. IMPRESSION: No evidence of disc herniation level. Mild disc bulging and mild bilateral neural foraminal narrowing at C3-4. Facet degenerative changes cause mild bilateral neural foraminal narrowing at C7 T1. DATA REPOSITORY:
== END 2025-02-07 01:29 ==
LOC: DI 01:09
PROVIDERS: PCP Family Medicine; Visit Provider Family Medicine
DX: M47.812 Spondylosis without myelopathy or radiculopathy, cervical region (principal)
CPT/HCPCS: 72141

== ENCOUNTER 2025-03-28 14:09 | Outpatient (CLI) | payer OTHER, SELFPAY ==
[2025-03-28 14:05] LABS: ESR 1 mm/hr (0-30)
[2025-03-28 15:17] LABS: Uric Acid 4.2 mg/dL (2.6-6.0)
[2025-03-28 22:50] LABS: Rheumatoid Factor <8.6 IU/mL (<12.0)
[2025-03-30 14:27] LABS: ANA Interpretation Negative (Negative)
== END 2025-03-28 14:10 | disposition home or self-care (01) ==
LOC: LBO 14:09
PROVIDERS: PCP Family Medicine; Visit Provider Family Medicine
DX: M77.11 Lateral epicondylitis, right elbow (principal); M77.12 Lateral epicondylitis, left elbow
CPT/HCPCS: 36415; 85652; 84550; 86038; 86431